=== PATIENT | male | born 1940 | race Two or more races ===

== ENCOUNTER 2024-01-03 06:14 | Inpatient (IN) | payer MEDICARE, SELFPAY ==
--- NOTE | 2023-11-29 13:00 | CM ---
Addendum entered by Melissa Chand 12/25/23 08:38:
Spoke with Rebeca Gonzalez at [facility] ([phone]). She states that patient's home is not in good condition and that she has been working with patient on making changes. She states that they will provide patient with caregiver
services but no one will stay with him. Discussed VN services and she will arrange meals on wheels (patient doesn't have a working stove). She confirmed that patient has watched the online education video and has all of his DME.
Original Note:
Patient is scheduled for conversion to R THR on 01/03/24. Spoke with patient prior to surgery via telephone. Introduced role of Orthopedic Navigator. Patient reports that he lives alone in a split level home. There are two steps to enter, then either
seven steps down or six steps up. He currently functions independently. He uses a cane inside and a rollator outside. He also has two rolling walkers, hip kit and commode. He has had services through [facility] and was in [facility] following a hip
fracture. PCP is Dr. Cornel Ni.
Discussed orthopedic program and post surgical plans. Reviewed anticipated length of stay and that goal is for him to return home at discharge. Patient is in agreement with tentative plan. He is a member of [facility] and will speak
with them about having a caregiver at home after surgery. He will need VN services.
Patient will complete online education.
Plan: Orthopedic Navigator will remain available to assist with the care of patient and will reassess discharge needs after surgery.
[2023-12-13 12:43] VITALS: BMI 23.6
[2023-12-13 14:16] LABS: Hematocrit 42.4 % (39.0-52.0); Hemoglobin 14.7 g/dL (13.0-18.0); Mean Corp Hgb Conc. 34.7 g/dL (33.0-37.0); Mean Corpuscular Hgb 32.2 pg (27.0-31.0); Mean Corpuscular Volume 92.8 fL (80.0-94.0); Mean Platelet Volume 11.3 fL (7.4-10.4); Platelet Count 145 10^3/uL (130-400); Red Blood Cell Count 4.57 10^6/uL (4.70-6.10); Red Cell Dist. Width 12.9 % (11.5-14.5); White Blood Cell Count 6.6 10^3/uL (4.8-10.8)
[2023-12-13 14:26] LABS: ALT (SGPT) 20 U/L (0-50); AST (SGOT) 27 U/L (17-59); Albumin 4.1 g/dl (3.5-5.0); Alkaline Phosphatase 117 U/L (38-126); Blood Urea Nitrogen 23 mg/dl (9-20); Carbon Dioxide 23 mmol/L (22-30); Chloride 109 mmol/L (98-107); Estimated Creatinine Clearance 89 ml/min; Glucose 108 mg/dl (70-99); Potassium 4.3 mmol/L (3.5-5.1); Sodium 138 mmol/L (135-145); Total Bilirubin 0.7 mg/dl (0.2-1.3); Total Protein 6.4 g/dl (6.3-8.2); eGFR > 60.00
[2023-12-13 14:27] LABS: C-Reactive Protein < 5.00 mg/L (0.0-10.00)
[2023-12-13 14:52] LABS: Erythrocyte Sed Rate 11 mm/hour (0-20)
[2023-12-13 15:15] VITALS: BMI 23.6
[2023-12-14 08:54] LABS: Glycohemoglobin (HgbA1c) 6.1 % (4.0-5.6)
[2024-01-03] VITALS (26 sets, daily range): BP systolic 75–154; BP diastolic 47–77; BMI 23.6
[2024-01-03] MEDS: MOBIC 15 MG PO (12:00)
[2024-01-03] MEDS: TYLENOL 650 MG PO (12:02)
[2024-01-03] MEDS: NORMOSOL-R 1000 IV ×2 (12:03→18:51)
--- NOTE | 2024-01-03 16:59 | OR.RPT ---
Addendum entered and electronically signed by Reynaldo Collins MD 01/08/24 15:31:
Correction:
DATE OF OPERATION: 01/03/2024
Original Note:
Operative Report
Operative Report
Orthopaedic Surgery Operative Note
DATE OF OPERATION: 11/26/2020
PREOPERATIVE DIAGNOSES: Right proximal femur malunion, secondary osteoarthritis right hip
POSTOPERATIVE DIAGNOSES: Same
OPERATION PERFORMED: Right conversion total hip arthroplasty, removal of hardware
SURGEON: Reynaldo Collins MD
LEARNING FACILITATOR: Pauline Clayton PA-C who helped with patient and limb positioning and retraction
ANESTHESIA: Spinal
COMPLICATIONS: None.
ESTIMATED BLOOD LOSS: 1200 mL.
DRAINS: None
SPECIMEN: None
IMPLANTS:
Biomet G7 Acetabular shell, cluster hole, size 56
Biomet G7 dual mobility acetabular liner
Biomet Ede femoral distal body, size 16 x150mm
Biomet Ede proximal body, size A, 50mm extended offset
Biolox Ceramic head -3 with dual mobility polyethylene ball head
Andrew trilogy acetabular screw 6.5mm x1
Andrew circlage cable x1
EXPLANTS:
Synthes cephalomeduallary nail with transfixing screws
INDICATIONS: 83-year-old male who under went ORIF of right proximal femur fracture with cephalomedullary nail at an outside institution about a year ago. He went on to have malunion and pain. He noticed a marked leg length discrepancy with the
right shorter than the left. He was frustrated with his pain and limited function. We discussed treatment options, operative and nonoperative. The patient understood the risks which included, but were not limited to, bleeding, infection, failure
to relieve pain, more pain than preop, damage to blood vessels and nerves, need for reoperation, mechanical failure of the implants, wound healing problems, stiffness, instability, blood clot, pulmonary embolism, myocardial infarction, pneumonia,
arrhythmia, CVA, and . The patient accepted these risks and wished to proceed. All questions were answered, and informed consent was obtained.
PROCEDURE IN DETAIL: The patient was identified in the preoperative holding area. The right hip was identified as the operative site. The patient was taken in the operating room and transferred to the operative table. General anesthesia was
performed. IV antibiotics and tranexamic acid were administered. A lopez catheter was placed. The patient was placed in the lateral position with Stulberg hip positioners. Axillary roll was placed. The down leg was well padded. All bony prominences
were well padded. The operative limb was prepped and draped in the usual sterile fashion.
Time out was performed. A skin incision was made over the distal lateral thigh with a prior distal interlocking screw was placed. Dissection was carried down to the IT band. The IT band was split in line with its fibers. The screw head was
identified after a 14'' osteotome was used to remove overlying bone. The screw was removed without incident. The area was irrigated and closed with 2-0 vicryl and 3-0 moncryl.
Attention was turned to the hip joint. A posterolateral approach to the hip was used incorporating prior incisions. The skin incision was centered over the greater trochanter. This was taken down sharply through subcutaneous tissues. Meticulous
hemostasis was achieved throughout the case with electrocautery. We split the fascia shreya in line with skin incision. I split the gluteus sarthak bluntly. We cauterized all crossing vessels as we split it. I palpated the sciatic nerve and made sure
it was well posterior in the operative field. It was protected throughout the case. The gluteus medius and minimus were identified and retracted anteriorly with a cobra retractor. I performed a posterior capsulotomy and tagged the intact the edge
of the capsule to aid in retraction as well as to reference length.
Dissection was complicated by the fracture. There was a posterior fragement of the greater trochanter which was displaced posteriorly and had fibrous union to the anterior portion. Once the hip capsule was resected, the hip was dislocated. At this
time, a split was made in the gluteus medius tendon with its fibers down to the greater trochanter. Rongeur was used over the medial aspect of the greater trochanter to expose the insertion site of the nail. The locking screw was removed from the
top of the nail. The extraction device was fixed to the nail. Lateral lag screw was then exposed in the region of the vastus ridge. This was removed without incident. Then the extractor device was used to remove the long cephalomedullary nail.
Attention was turned back to the proximal femur. Neck cut was performed. The fracture fragments of the neck and some of the proximal femoral callous were removed. The femoral head measured 52 mm in outer diameter. I placed a curve hohmann
retractor over the anterior lip of the acetabulum between the labrum and the anterior hip capsule. A second retractor was placed inferiorly just distal to the transverse acetabular ligament. Circumferential view of the acetabulum was achieved. I
incised the labrum and pulvinar with electrocautery. I started with a 51 mm reamer and reamed gently down to the medial wall. I then sequentially reamed up to a 55mm reamer. This gave a nice bed of bleeding bone with excellent column support
anteriorly and posteriorly. I impacted the acetabular shell in approximately 40 degrees of abduction and 20 degrees of anteversion. I matched the anteversion of the transverse acetabular ligament. I also made sure that the anterior rim of the socket
was not proud of the anterior wall to minimize the chance of iliopsoas tendinitis. I confirmed the cup was well-seated. I placed 1 ileal screws in the posterior superior quadrant. I then impacted a neutral liner and confirmed it was well seated with
the locking mechanism.
On the femoral side, I used a rongeur to open up the medullary canal. A prophylactic cerclage wire was placed below the lag screw insertion site and below the fracture site. By hand I used the [employer] reamers to prepare the femoral canal. I
reamed up to a size 17mm which had appropriate height and distal purchase. The distal stem was impacted into placed, and the proximal femur was reamed to accept the proximal body. Trial proximal bodies were attached. Trial femoral head was placed,
and the hip was taken through a complete range of motion. It was noted to be stable in extension without impingement. It was stable in the position of sleep and in flexion with internal rotation.
Trials were removed. The proximal body was impacted into place and torque limiter was used to screw into place. The final ball head was assembled and impacted on a clean dry trunion. The hip was reduced. Leg length and stability were checked again
and found to be appropriate. The hip was taken through a range of motion and was noted to be stable in flexion and internal rotation, position of sleep, extension, and flexion. The sciatic nerve was inspected and noted to be free of tension and
uninjured.
A dilute betadine soak was performed for approximately 3 minutes, and then the hip was copiously irrigated. The abductor tendons were repaired with 0 PDS. Local anesthetic was injected. The vastus lateralis fascia was repaired with 2-0 PDS. Tensor
fascia was closed with #1 PDS in running fashion. The subcutaneous tissues were closed with 2-0 PDS in running fashion. The skin was reapproximated with 3-0 Monocryl subcuticular suture. I placed a Prineo dressing followed by a Mepilex Ag dressing.
The patient awoke from anesthesia without difficulty. Sponge and instrument counts were correct x2 at the end of the case.
I was present and participated in the entire procedure. I checked leg length at the ankles after transfer on the bed which was equal. The patient was sent to the recovery room in stable condition.
Ayush Collins MD
[2024-01-03] MEDS: TORADOL 15 MG IV (18:01)
[2024-01-03] MEDS: DILAUDID 0.25 MG IV (18:55)
[2024-01-03] MEDS: ASPIRIN 325 MG PO (18:57)
[2024-01-03] MEDS: COLACE 100 MG PO (20:53)
[2024-01-03] MEDS: SENOKOT 17.1999999999999993 MG PO (20:53)
[2024-01-03] MEDS: BACTROBAN 2% OINTMENT NASAL (20:54)
[2024-01-03] MEDS: DECADRON 4 MG PO (20:54)
[2024-01-03] MEDS: BACTROBAN 2% OINTMENT 1 APPLIC NASAL (21:02)
[2024-01-03] MEDS: ANCEF 5 IV (22:34)
[2024-01-04 03:00] VITALS: BP 129/72
[2024-01-04 04:56] LABS: Hematocrit 34.1 % (39.0-52.0); Hemoglobin 11.4 g/dL (13.0-18.0); Mean Corp Hgb Conc. 33.4 g/dL (33.0-37.0); Mean Corpuscular Hgb 31.6 pg (27.0-31.0); Mean Corpuscular Volume 94.5 fL (80.0-94.0); Mean Platelet Volume 10.8 fL (7.4-10.4); Platelet Count 138 10^3/uL (130-400); Red Blood Cell Count 3.61 10^6/uL (4.70-6.10); White Blood Cell Count 6.5 10^3/uL (4.8-10.8)
[2024-01-04] MEDS: TORADOL 15 MG IV (05:46)
[2024-01-04] MEDS: ANCEF 5 IV (05:46)
[2024-01-04 08:00] VITALS: BP 121/66
[2024-01-04] MEDS: TOPROL XL 12.5 MG PO (09:14)
[2024-01-04] MEDS: SENOKOT 17.1999999999999993 MG PO (09:14)
[2024-01-04] MEDS: DECADRON 4 MG PO (09:14)
[2024-01-04] MEDS: COLACE 100 MG PO (09:14)
[2024-01-04] MEDS: MOBIC 15 MG PO (09:14)
[2024-01-04] MEDS: ASPIRIN 325 MG PO (09:14)
[2024-01-04 09:58] VITALS: BP 118/68; BP 139/60; PULSE 97; O2SAT 97
--- NOTE | 2024-01-04 11:17 | CM ---
Addendum entered by LEE Conklin 01/04/24 14:55:
Navigator spoke to Maryann Urbina who was to olive picker patient. She is a nurse and the other nurse from their [employer] did not know that patient expected them to come check on him. Mayrann's brother set up someone at [employer] to make patient a meal for
gurjit. Patient said he talked to Venita at [facility] today. He believes the Meals on wheels begin tomorrow.
Maryann will come with her to take patient home today. She knows she needs to stop at [facility] to olive picker his medications.
[facility] was sent updated clinical today.
Original Note:
Reviewed chart and held rounds with PT, OT and nursing. Patient admitted as planned for conversion to R THR on 01/03/24. Met with patient at bedside. Confirmed information previously obtained for assessment. Also discussed discharge plans. The plan
is for patient to return home at discharge. He lives alone. He is part of [facility]. Navigator spoke to Venita at [phone] extn. [phone]. She reports patient told her he did not think he needed aides at home as he has friends from
[facility] who will be checking in on him. Venita hopes to go to his home tomorrow to assess for need for an aide. Reviewed VN services including start of care (tentatively 01/04), services to be ordered (PT, OT, MATERIALS PLANNER and SN) and
frequency/duration of services. Options list provided and PAC data reviewed. Patient selects [facility].
PCP is Dr. Cornel Ni.
VN referral was completed and [facility] to [facility] with request for start of care on 01/04. Confirmation received of their ability to accept case. despatching and receiving clerk to fax discharge instructions to [facility] at FAX [phone] when
complete.
Patient has a rolling walkers, rollator, commode, urinals and a cane at home.
Plan: Return home today. A friend will be transporting him home.
[2024-01-04 12:00] VITALS: BP 131/61
[2024-01-04 12:08] VITALS: BP 129/70; PULSE 91; O2SAT 97
--- NOTE | 2024-01-04 12:38 | W.PN.ORTHO ---
Today's Communication / Plan
-
d/c
Assessment
.
Distal Motor Intact: Yes
Dressing:
Clean, dry and intact.
Plan
.
Surgery / Date: R RENA Conversion 01/03/24 Dr. Collins
DVT Prophylaxis: Aspirin
Activity:
Out of bed.
PT/OT
Discharge Plan: Home w/ VN
Subjective
.
.:
Patient resting comfortably.
Vital Signs and Labs
.
Vital Signs and Labs:
Lab Results
01/04/24 03:44
12/13/23 12:32
Temp Pulse Resp BP Pulse Ox
98.2 F 77 17 121/66 97
01/04/24 08:00 01/04/24 08:00 01/04/24 08:00 01/04/24 09:14 01/04/24 08:00
Non-invasive Hgb result: 13.3
Physical Exam
-
HEENT: No pallor, cyanosis, or jaundice. Throat clear.
NECK: Supple. No JVD.
RESPIRATORY: Lungs clear to auscultation.
CVS: S1, S2 normal. RRR.� No murmur, rub or gallop.
ABDOMEN: Soft, non-tender. No distension. BS+/normal.
EXTREMITIES: strength equal, no calf pain with palpation
RN OFFICE: AOx3. No focal deficits. sales and customer relations rep grossly intact
--- NOTE | 2024-01-04 12:48 | W.DS.TRANS ---
DC Summary - Chief Minister
-
Discharge Instructions:
Sleep Apnea Risk Low
Discharge Diagnosis/Procedures R RENA Conversion 01/03/24 Dr. Collins
Diet As tolerated
Activity With assistance,With Walker
Additional Activity Hip [id number]
Driving Restrictions No driving
Bathing Restrictions OK to Shower
Other Services VN,PT,OT
Instructions:
Stand-Alone Forms: Total Hip/Knee Replacement D/C
Changes to Home Medications: Yes
Discharge Medications:
DC Medications w/original date entered in [facility]
Chondroitin Sulfate 1 dose PO BID Supplement 12/08/23
Glucosamine 1 tab PO TID Supplement 12/08/23
MSM 1 dose PO BID Supplement 12/08/23
Men's 50 Plus Multivitamin 1 tab PO DAILY Supplement 12/08/23
Pygeum Bark 4,500 mg PO DAILY Supplement 12/08/23
Stinging Nettle Root 1 dose PO DAILY Supplement 12/08/23
Vitamin D3 1 tab PO .EVERY OTHER NIGHT Supplement 12/08/23
aspirin 81 mg chewable tablet 81 mg PO DAILY Blood Clot Prevention/Tx 12/08/23
metoprolol succinate 25 mg tablet,extended release 24 hr (Toprol XL) 12.5 mg PO DAILY Heart Failure 12/08/23
saw palmetto 1 dose PO DAILY Supplement 12/08/23
mupirocin 2 % topical ointment 1 applic topical BID infection prevention #1 tube 12/13/23
Saccharomyces boulardii 250 mg capsule (Florastor) 250 mg PO BID #1 cap 01/04/24
aspirin 325 mg tablet 325 mg PO DAILY blood clot prevention #1 tab 01/04/24
cefadroxil 500 mg capsule 500 mg PO BID infection prevention #14 caps 01/04/24
dexamethasone 4 mg tablet 4 mg PO BID inflammation #6 tabs 01/04/24
docusate sodium 100 mg capsule (Colace) 100 mg PO BID stool softner #1 cap 01/04/24
famotidine 20 mg tablet 20 mg PO HS GI prophylaxis #30 tabs 01/04/24
meloxicam 15 mg tablet 15 mg PO DAILY anti-inflammatory #14 tabs 01/04/24
sennosides 8.6 mg tablet (Senokot) 17.2 mg (2 x 8.6 mg) PO BID laxative #2 tabs 01/04/24
tramadol 50 mg tablet 50 mg PO Q6H PRN 1 tab moderate pain, 2 if severe #30 tabs 01/04/24
Home Medication Changes
cefadroxil 500 mg capsule 500 mg PO BID infection prevention #14 caps 01/04/24
dexamethasone 4 mg tablet 4 mg PO BID inflammation #6 tabs 01/04/24
famotidine 20 mg tablet 20 mg PO HS GI prophylaxis #30 tabs 01/04/24
meloxicam 15 mg tablet 15 mg PO DAILY anti-inflammatory #14 tabs 01/04/24
tramadol 50 mg tablet 50 mg PO Q6H PRN 1 tab moderate pain, 2 if severe #30 tabs 01/04/24
Ergocalciferol 50Mcg weekly disp #10, 3 refills
Pending Results: No
[2024-01-04 16:00] VITALS: BP 145/81
== END 2024-01-04 16:07 | disposition home health service (06) | DRG 522 ==
LOC: 2 SOUTH 06:14
PROVIDERS: ADMITTING PHYSICIAN Orthopaedic Surgery; FAMILY PHYSICIAN Internal Medicine
PROC: 0SR904Z Replacement of Right Hip Joint with Ceramic on Polyethylene Synthetic Substitute, Open Approach (ICD-10-PCS; 2024-01-03)
PROC: 0QP604Z Removal of Internal Fixation Device from Right Upper Femur, Open Approach (ICD-10-PCS; 2024-01-03)
DX: S72.141P Displaced intertrochanteric fracture of right femur, subsequent encounter for closed fracture with malunion (principal); X58.XXXD Exposure to other specified factors, subsequent encounter; E78.5 Hyperlipidemia, unspecified; G47.33 Obstructive sleep apnea (adult) (pediatric); K21.9 Gastro-esophageal reflux disease without esophagitis; I25.10 Atherosclerotic heart disease of native coronary artery without angina pectoris
CPT/HCPCS: 36415; 73502; 80053; 83036; 85027; 85652; 86140; 86850; 86900; 86901; 87070; 97116; 97162; 97166; 97535; C1713; C1776